=== PATIENT | male | born 1990 | race Caucasian/White ===

== ENCOUNTER 2017-11-19 17:41 | Emergency (ER) | payer OTHER ==
[2017-11-19] MEDS ORDERED: Bupivacaine 0.5% 10 ML SDV INJECT ONE (17:59)
--- NOTE | 2017-11-19 18:06 | EDM.PDOC ---
ED HPI GENERAL MEDICAL PROBLEM - General Chief Complaint: Laceration Stated Complaint: RIGHT INDEX FINGER LAC Time Seen by Provider: 11/19/17 18:00 Source of Information: Reports: Patient History Limitations: Reports: No Limitations - History of Present Illness INITIAL COMMENTS - FREE TEXT/NARRATIVE: 27-year-old male presents the ED with a crush type injury to his right index finger. This occurred about 1415 hours today in the workplace. He states his distal finger crushed between 2 steel objects( pipe clamp) . The nail has been avulsed from the nailbed. There is a laceration of the ulnar aspect of the distal phalanx. He can still move it at the joint. He does not believe it is fractured. He was wearing a protective glove at the time of injury. Tetanus toxoid he believes is up-to-date. Patient is right-hand dominant. Onset: Today Onset Date: 11/19/17 Onset Time: 14:15 Duration: Hour(s): Location: Reports: Upper Extremity, Right (Right index finger distal.) Quality: Reports: Ache Severity: Moderate Improves with: Reports: None Worsens with: Reports: None Context: Reports: Trauma (Crush type injury to the distal phalanx with avulsion of the nail from the nailbe.). Denies: Activity, Exercise, Lifting, Sick Contact Associated Symptoms: Reports: No Other Symptoms Treatments SU[employer]OR DIE CASTING: Reports: Other (see below) (None.) Right 2-Index finger Pain Score (Numeric/FACES): 0 - Related Data Allergies Allergy/AdvReac Type Severity Reaction Status Date / Time No Known Allergies Allergy Verified 11/19/17 18:00 Home Meds: Home Meds Doxycycline [Vibramycin] 100 mg PO BID #20 cap 11/19/17 [Rx] oxyCODONE HCl/Acetaminophen [Percocet 5-325 mg Tablet] 1 - 2 each PO Q4H PRN # 20 tablet 11/19/17 [Rx] Past Medical History Musculoskeletal History: Reports: Other (See Below) (Previous open fracture right distal thumb with abnormal DIP joint and limited mobility at the wrist joint post injury.) Social & Family History - Living Situation & Occupation Occupation: Employed ED ROS GENERAL - Review of Systems Review Of Systems: See Below Constitutional: Reports: No Symptoms. Denies: Fever, Chills, Malaise, Weakness , Weight Loss HEENT: Reports: No Symptoms Respiratory: Reports: No Symptoms Cardiovascular: Reports: No Symptoms Endocrine: Reports: No Symptoms GI/Abdominal: Reports: No Symptoms : Reports: No Symptoms Musculoskeletal: Reports: Other (Injury to the right distal index finger.) Skin: Reports: Other (Laceration ulnar aspect distal) Neurological: Reports: No Symptoms ( right index finger) Psychiatric: Reports: No Symptoms Hematologic/Lymphatic: Reports: No Symptoms Immunologic: Reports: No Symptoms ED EXAM, SKIN/RASH Exam: See Below Exam Limited By: No Limitations General Appearance: Alert, WD/WN, Anxious Extremities: Other (Patient has suffered a crush type injury to the distal phalanx of his right index finger. The nail has been avulsed from the nailbed at the base. There is a laceration of the ulnar aspect of the distal phalanx. Will require surgical repair.) Neurological: Alert, Oriented, CN II-XII Intact, Normal Cognition Psychiatric: Normal Affect, Normal Mood Skin: Warm, Dry, Intact, Normal Color ED SKIN PROCEDURES - Laceration/Wound Repair Right Distal Finger Lac/Wound length In cm: 2.5 (Injury was to the distal right index finger with avulsion of the nail from the nailbed and laceration ulnar aspect of the finger. ) Appearance: Subcutaneous, Irregular, Mildly Contaminated Distal NVT: Neuro & Vascular Intact Anesthetic Type: Digital Local Anesthesia - Bupivicaine (Marcaine): 0.5% Plain Local Anesthetic Volume: Other Skin Prep: Saline (7 mL) Exploration/Debridement/Repair: Wound Explored Closed with: Sutures Suture Size: 4-0 # of Sutures: 10 (Laceration repair was difficult. He has avulsed the nail completely from the nailbed matrix with destruction of the nail matrix. The nail was reapproximated using 4-0 Ethilon sutures to provide bone coverage. Laceration in the ulnar aspect of the finger was sutured 4. His reapproximated the normal soft tissue position of his finger.) Suture Type: Nylon, Interrupted, Simple Course - Vital Signs Last Recorded V/S: Last Vital Signs Temp 36.8 C 11/19/17 17:55 Pulse 65 11/19/17 17:55 Resp 16 11/19/17 17:55 BP 138/77 11/19/17 17:55 Pulse Ox 100 11/19/17 17:55 - Orders/Labs/Meds Orders: Active Orders 24 hr Category Date Time Status Fingers Second Digit Rt F6 [CR] Stat Exams 11/19/17 18:39 Taken Meds: Medications Discontinued Medications Generic Name Dose Route Start Last Admin Trade Name Damir PRN Reason Stop Dose Admin Bupivacaine HCl 10 ml 11/19/17 17:59 11/19/17 18:05 Sensorcaine-Mpf 0.5% INJECT 11/19/17 18:00 10 ml ONETIME ONE Administration Doxycycline Hyclate 200 mg 11/19/17 19:35 Vibramycin PO 11/19/17 19:36 ONETIME ONE Oxycodone/Acetaminophen 2 tab 11/19/17 19:35 Percocet 325-5 Mg PO 11/19/17 19:36 ONETIME ONE - Radiology Interpretation Free Text/Narrative:: 27-year-old male presents the ED with a work-related injury. Crush type injury to the distal phalanx of his right index finger. Injury appears to be avulsion of the nail from the nailbed and laceration to the ulnar aspect of the distal finger. Plan will be to x-ray the finger to make sure there is no fracture. Plan is Marcaine digital block and then definitive repair of the finger. - Re-Assessments/Exams Free Text/Narrative Re-Assessment/Exam: 11/19/17 18:35 x-rays of the finger has still not been done yet. I did digital block with Marcaine 0.5%. Patient tolerated procedure pretty well. 11/19/17 19:05 x-ray of the right index finger shows no fractures. Wound will be repaired at this time with replacement of the fingernail to continue bone coverage.. 11/19/17 19:31 on exploration the patient has avulsed the fingernail completely from the fingernail matrix. The fingernail was reapproximated and sutured back in place with 4-0 Ethilon sutures. The laceration to the ulnar aspect of the finger tip was sutured 4. There is a total of 10 sutures in his finger. He will be on Doxil cycle 100 mg twice daily for the next 10 days to prevent secondary wound infection. Percocet tabs 5/325 one or 2 every 4-6 hours for pain relief as needed. May return to work only if alternative work duties are available to him where he does not have to use his right hand for a period of 3-5 days. The wound needs to stay dry except for daily cleanse with soap and water and topical antibiotic ointment and then bandages to keep it clean. Sutures will need to be removed in 10 days' time Departure - Departure Time of Disposition: 19:33 Disposition: Home, Self-Care 01 Condition: Fair Clinical Impression: Partial avulsion of fingernail Qualifiers: Encounter type: initial encounter Qualified Code(s): S61.309A - Unspecified open wound of unspecified finger with damage to nail, initial encounter Laceration of index finger with damage to nail Qualifiers: Encounter type: initial encounter Foreign body presence: without foreign body Laterality: right Qualified Code(s): S61.310A - Laceration without foreign body of right index finger with damage to nail, initial encounter - Discharge Information Prescriptions: Doxycycline [Vibramycin] 100 mg PO BID #20 cap oxyCODONE HCl/Acetaminophen [Percocet 5-325 mg Tablet] 1 - 2 each PO Q4H PRN # 20 tablet PRN Reason: pain relief. Referrals: PCP,None [Primary Care Provider] - Forms: ED Department Discharge, ED Return to Work/School Form Additional Instructions: Evaluation in the emergency room today in regards to crush type injury to the distal end of your right index finger. Injury involves complete avulsion of the nail from the nailbed at the base of the fingernail. Laceration to the ulnar aspect of the finger itself. X-ray reveals no bony injuries. Treatment was laceration repair under digital block. 10 sutures were placed in total. Several sutures were placed to the nail bed itself to reapproximate the fingernail to the nail bed matrix. Strip I tried bone coverage and prevent secondary infection of the bone. The fingernail will slough off over the next 2-3 months. The new fingernail never appear normal will be thickened with ridges in it from injury. Treatment is daily cleanse with soap and water. Showering is okay. Then apply topical anabolic such as bacitracin or Polysporin to the wound and cover with bandages in a Fashion i.e. up and over the fingertip and then around the fingertip to keep it clean. Just using a aluminum splint to prevent injury to the fingertip for the next 10 days. Sutures should be removed in approximately 10-12 days time. You will need to take antibiotic doxycycline 100 mg twice daily for the next 10 days to prevent secondary wound infection. She'll doses were provided in the ED. Motrin 600 mg every 6 hours can be utilized for pain relief. It is likely you will need something stronger for pain such as Percocet ( narcotic pain pill) and I did supply you with 20 tablets . Dose is one or 2 tablets every 4-6 hours as needed for pain relief. This will be for the next 2- 3 days. May return to work if alternative work duties are available to wear you would not have to use right hand much risk recurrent injury to the fingertip or fingernail for the next week to 10 days. - My Orders Last 24 Hours: My Active Orders 11/19/17 18:39 Fingers Second Digit Rt F6 [CR] Stat - Assessment/Plan Last 24 Hours: My Active Orders 11/19/17 18:39 Fingers Second Digit Rt F6 [CR] Stat
[2017-11-19] MEDS ORDERED: Acetaminophen/oxyCODONE 325-5 MG Tab PO ONE (19:35)
[2017-11-19] MEDS ORDERED: Doxycycline 100 MG Cap PO ONE (19:35)
--- NOTE | 2017-11-20 10:07 | CR ---
Right second finger: Three views of the right second finger were obtained. Comparison: No previous study. Soft tissue injury is seen distally. Soft tissue swelling is also noted within the second finger. No acute fracture or other bony abnormality is seen. Impression: 1. Soft tissue injury and swelling is seen within the right second finger. 2. No bony abnormality is identified on right second finger study. Diagnostic code #3
== END 2017-11-19 19:55 | disposition home or self-care (01) ==
LOC: JD.ED 17:41
DX: S61.310A Laceration without foreign body of right index finger with damage to nail, initial encounter (principal); W23.1XXA Caught, crushed, jammed, or pinched between stationary objects, initial encounter
CPT/HCPCS: 11760; 12001; 73140; 99284; A9270; 99283